=== PATIENT | male | born 1950 | race Caucasian/White ===

== ENCOUNTER 2020-12-23 02:27 | Inpatient (IN) | payer MEDICARE ==
[~2020-12-23] VITALS: Ht 177.8 cm; Wt 86.6 kg
[~2020-12-23 02:27] MED LIST: ACID CONTROL20 MG; B12INJ IM; BUSPAR15 MG; CO Q-10100 MG PO; COZAAR 50 MG TA50 M2 PO; CRESTOR40 MG; FISH OIL 1,001000 M2 PO; GLUCOPHAGE500 MG; HYDROXYZINE HCL25 M2; NORVASC10 MG; PREDNISONE50 MG PO; PRILOSEC40 MG; VITAMINS; XYZAL5 MG; ZOFRAN ODT4 MG SUBLING; ZOLOFT100 MG
[2020-12-23 02:37] VITALS: BP 156/96
[2020-12-23] MEDS ORDERED: AVAPRO 150 MG150 M1 PO (02:46)
[2020-12-23] MEDS ORDERED: PLAQUENIL200 MG PO (02:47)
[2020-12-23] MEDS ORDERED: XYZAL5 MG PO (02:48)
[2020-12-23] MEDS ORDERED: AVAPRO300 MG PO (03:00)
[2020-12-23 03:17] LABS: ABSOLUTE LYMPHOCYTES 1.5 thou/uL (0.8-5.3); ABSOLUTE MONOCYTES 0.8 thou/uL (0.0-1.2); ABSOLUTE NEUTROPHILS 3.5 thou/uL (1.6-8.1); BASOPHILS 0.3 %; EOSINOPHILS 0.7 %; HEMATOCRIT 36.5 % (42.0-52.0); HEMOGLOBIN 12.9 gm/dL (14.0-18.0); LYMPHOCYTES 25.1 %; MCH 31.7 pg (26.0-34.0); MCHC 35.2 g/dL (28.0-37.0); MCV 89.8 fL (80.0-100.0); MONOCYTES 13.5 %; MPV 6.6 fl. (7.2-11.1); NUCLEATED RBCS 0 /100WBC; PLATELET COUNT* 186 thou/uL (150-400); POLYS 60.4 %; RBC 4.06 mil/uL (4.50-6.00); RDW-CV 12.2 % (10.5-14.5); WBC 5.8 thou/uL (4.0-11.0)
[2020-12-23 03:24] LABS: CALCIUM 8.9 mg/dL (8.5-10.1); CREATININE 1.1 mg/dL (0.6-1.3); POTASSIUM 4.6 mmol/L (3.5-5.1)
--- NOTE | 2020-12-23 10:59 | EKG ---
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 : 1950 Requested By: Diana Mccarthy Order Number: [id number] Mireille MD: Vivek Judge Measurements Intervals [place] Rate: 77 P: 68 NE: 218 QRS: 38 QRSD: 94 T: 62 QT: 356 QTc: 403 Interpretive Statements Sinus rhythm Borderline prolonged NE interval Probable left atrial enlargement RSR' in V1 or V2, right VCD Compared to ECG 10/15/2014 01:10 RSR' in V1 or V2 now present Electronically Signed On 12-23-2020 10:59:43 CDT by Vivek Judge [email or web address] <ELECTRONICALLY SIGNED> By: Vivek Judge MD, [facility] 12/23/20 1059 0236 0236 Vivek Judge MD, [facility] /EPI
[2020-12-23 12:22] LABS: CALCIUM 8.6 mg/dL (8.5-10.1); CREATININE 0.9 mg/dL (0.6-1.3); POTASSIUM 4.3 mmol/L (3.5-5.1)
[2020-12-23 16:46] VITALS: BP 133/72
[2020-12-23 17:00] VITALS: BP 156/82
--- NOTE | 2020-12-23 18:42 | NUR ---
PT ALERT AND ORIENTED X 4. PT UP AD TIN AND STEADY. PT DENIES N,V, AND ABDOMINAL PAIN AT THIS TIME. REMAINS ON RA. PT ADMITTED WITH SBO. CALL LIGHT WITHIN REACH. DR. BIANCHI CALLED FOR SURGERY. UPDATE GIVEN. STATES SHE WILL TRY TO SEE PT TONIHGT. IVF REMAIN INFUSING. WILL CONTINUE TO MONITOR.
[2020-12-23 20:30] VITALS: BP 132/76
--- NOTE | 2020-12-24 07:33 | NUR ---
PATIENT SLEPT VERY LITTLE THIS SHIFT. IV FLUIDS CONTINUE TO INFUSE ORDERED. PATIENT HAS BEEN NPO ORDERED. PATIENT HAS DENIED THE NEED FOR PAIN MEDICINE. PATIENT STATES HE DID HAVE A SMALL BOWEL MOVEMENT LAST NIGHT. WILL CONTINUE TO MONITOR.
[2020-12-24 07:53] VITALS: BP 114/59
[2020-12-24 09:25] LABS: ABSOLUTE LYMPHOCYTES 1.7 thou/uL (0.8-5.3); ABSOLUTE MONOCYTES 0.7 thou/uL (0.0-1.2); ABSOLUTE NEUTROPHILS 2.9 thou/uL (1.6-8.1); BASOPHILS 0.5 %; EOSINOPHILS 0.6 %; HEMATOCRIT 38.1 % (42.0-52.0); HEMOGLOBIN 13.3 gm/dL (14.0-18.0); LYMPHOCYTES 31.5 %; MCH 31.6 pg (26.0-34.0); MCHC 34.9 g/dL (28.0-37.0); MCV 90.5 fL (80.0-100.0); MONOCYTES 13.7 %; MPV 6.9 fl. (7.2-11.1); NUCLEATED RBCS 0 /100WBC; PLATELET COUNT* 197 thou/uL (150-400); POLYS 53.7 %; RBC 4.21 mil/uL (4.50-6.00); RDW-CV 12.3 % (10.5-14.5); WBC 5.3 thou/uL (4.0-11.0)
[2020-12-24 09:40] LABS: CALCIUM 8.9 mg/dL (8.5-10.1); CREATININE 0.9 mg/dL (0.6-1.3); MAGNESIUM 2.1 mg/dL (1.8-2.4); POTASSIUM 3.9 mmol/L (3.5-5.1)
[2020-12-24 16:07] VITALS: BP 130/72
--- NOTE | 2020-12-24 18:39 | NUR ---
PATIENT HAS REMAINED A&OX4, PLEASANT AND COOPERATIVE WITH CARES THIS SHIFT. MEDICATIONS AND FLUIDS ADMINISTERED ORDERED. PATIENT REPORTS HAVING HAD MODERATE BM X2 THIS EVENING AND IS "FEELING BETTER". PATIENT HAS BEEN UP FREQUENTLY WALKING THE DERAS ON THE UNIT AND IS TOLERATING CLEAR LIQUID DIET. PATIENT HAS DENIED ANY PAIN/N/V THIS SHIFT. CALL LIGHT WITHIN REACH.
[2020-12-24 21:30] VITALS: BP 124/71
--- NOTE | 2020-12-25 07:37 | NUR ---
PATIENT SLEPT PART OF THE NIGHT. IV FLUIDS CONTINUE TO INFUSE ORDERED. PATIENT WAS GIVEN ANOTHER DOSE OF MILK OF MAG PER REQUEST. PATIENT HAD ANOTHER COUPLE STOOLS THIS SHIFT. PATIENT SHOULD DISCHARGE HOME TODAY. WILL CONTINUE TO MONITOR.
[2020-12-25] MEDS ORDERED: CVS SENNA PLUS1 EACH PO (08:06)
[2020-12-25 08:10] VITALS: BP 121/67
[2020-12-25] MEDS ORDERED: METOCLOPRAM5 MG/1 ML IVPUSH (08:10)
[2020-12-25 08:29] LABS: HEMATOCRIT 34.1 % (42.0-52.0); HEMOGLOBIN 11.8 gm/dL (14.0-18.0); MCH 31.1 pg (26.0-34.0); MCHC 34.7 g/dL (28.0-37.0); MCV 89.5 fL (80.0-100.0); MPV 7.2 fl. (7.2-11.1); RBC 3.81 mil/uL (4.50-6.00); RDW-CV 12.2 % (10.5-14.5); WBC 4.1 thou/uL (4.0-11.0)
[2020-12-25 08:54] LABS: CALCIUM 8.5 mg/dL (8.5-10.1); CREATININE 0.8 mg/dL (0.6-1.3); POTASSIUM 3.7 mmol/L (3.5-5.1)
[2020-12-25 13:26] VITALS: BP 121/67
--- NOTE | 2020-12-25 13:45 | NUR ---
PT A&OX4 VSS. PT UP AD TIN, GAIT STEADY. DENIES N/V. DIET ADVANCED AND TOLERATED. PT REPORTS BM TODAY. ACCUCHECKS, SLIDING SCALE INSULIN ADMINISTERED WHEN INDICATED. IV TO LFA PATENT, DRESSING C/D/I. KUB RESULTS REPORTED TO DR RAPHAEL AND PT CLEARED TO DC HOME. PT IV DC'D PRIOR TO LEAVING UNIT. PT DRESSED INDEPENDENTLY. PT STATES UNDERSTANDING OF DC AND FOLLOW UP INSTRUCITONS. PT LEFT UNIT IN WHEELCHAIR TRANSPORTED BY NURSING STAFF.
--- NOTE | 2020-12-27 15:30 | CON ---
[place] [address] CONSULTATION Name: JIMMY BEEBE Vito Room: [address]#: [id number] Admission: 12/23/20 Attend Phys: Maldonado Bowden MD Discharge: 12/25/20 Date of : 54 Report #: [id number] THIS REPORT FOR: cc: Vivek Liu MD, John MD Namin,Cassia Cross MD ~ DOC #: [id number] cc: Maldonado Bowden MD, MD Cassia Ann MD DATE OF CONSULTATION: 12/24/2020 REASON FOR CONSULT: Partial small bowel obstruction. HISTORY OF PRESENT ILLNESS: This is a 70-year-old male with history of small-bowel obstruction in the past. The patient presented with abdominal pain and distention. He reports that he usually has a lot of gas and has to belch for a couple of hours before going to bed every night. In admission, the patient had a CT of abdomen and pelvis which revealed dilated stomach with dilation of the small bowel and significant amount of stool in the colon. The patient was reporting some nausea and labs found him to be hyponatremic. PAST MEDICAL HISTORY: Significant for history of diabetes, hypertension, dyslipidemia, gastroesophageal reflux disease, diverticulosis, degenerative joint disease, seasonal allergies. ALLERGIES: SIGNIFICANT TO CEPHALEXIN, HYDROCODONE, LATEX, LISINOPRIL, PENICILLIN, AUGMENTIN, OSELTAMIVIR, TRAMADOL AND CEPHALOSPORINS. MEDICATIONS: Please refer to MAR. SOCIAL HISTORY: The patient lives at home. Denies tobacco or alcohol use. FAMILY HISTORY: Noncontributory. PHYSICAL EXAMINATION: VITAL SIGNS: Normal vitals. LUNGS: Clear. CARDIOVASCULAR: Regular. ABDOMEN: Soft, nontender, nondistended. Bowel sounds are positive. ASSESSMENT AND PLAN: The patient with history of small-bowel obstruction in the past, who presents with nausea and abdominal pain [place] [address] CONSULTATION Name: JIMMY BEEBE Room: [address]#: [id number] Admission: 12/23/20 Attend Phys: Maldonado Bowden MD Discharge: 12/25/20 Date of : 54 Report #: [id number] constipation and dilatation of the small bowel and gastric distention. His gastric distention and burping issues may be due to gastroparesis as he has had diabetes since 2009. He also has constipation, which does not help this. In addition, he may have a motility issue of his small bowel as well. I will go ahead and put him on Reglan 10 mg IV q. 8 hours with a goal to switch him to 10 mg p.o. b.i.d. when he goes home. He should also take MiraLax regularly. I will order a KUB tomorrow. We will start him with clear liquids today and advance diet, hopefully to regular tomorrow. Cassia Fenton MD FMN/RAN <ELECTRONICALLY SIGNED> By: Cassia Fenton MD 12/27/20 1530 1023 1103Cassia Fenton MD /nt
== END 2020-12-25 13:45 | disposition home or self-care (01) | DRG 389 ==
LOC: M.ERS 02:27 → M.TBA-ER 08:23 → M.ORTHSURG 16:58
PROVIDERS: Emergency Medicine; Family Medicine; Internal Medicine; Surgery; ADMIT Internal Medicine; ATTEND Internal Medicine
DX: K56.600 Partial intestinal obstruction, unspecified as to cause (principal); E87.1 Hypo-osmolality and hyponatremia; E11.9 Type 2 diabetes mellitus without complications; I10 Essential (primary) hypertension; E78.5 Hyperlipidemia, unspecified; K21.9 Gastro-esophageal reflux disease without esophagitis; M19.90 Unspecified osteoarthritis, unspecified site; K57.90 Diverticulosis of intestine, part unspecified, without perforation or abscess without bleeding; Z20.822 Contact with and (suspected) exposure to COVID-19; Z79.84 Long term (current) use of oral hypoglycemic drugs; Z79.899 Other long term (current) drug therapy; Z88.5 Allergy status to narcotic agent; Z88.0 Allergy status to penicillin; Z88.8 Allergy status to other drugs, medicaments and biological substances; Z88.1 Allergy status to other antibiotic agents; Z91.040 Latex allergy status

== ENCOUNTER 2020-12-26 05:14 | Emergency (ER) | payer MEDICARE ==
[~2020-12-26] VITALS: Ht 177.8 cm; Wt 87.5 kg
[~2020-12-26 05:14] MED LIST changes: +AVAPRO 150 MG150 M1 PO; +AVAPRO300 MG PO; +CVS SENNA PLUS1 EACH PO; +METOCLOPRAM5 MG/1 ML IVPUSH; +PLAQUENIL200 MG PO; +XYZAL5 MG PO
[2020-12-26 06:18] VITALS: BP 177/87
== END 2020-12-26 06:18 | disposition home or self-care (01) ==
LOC: M.ERS 05:14
DX: R45.1 Restlessness and agitation (principal); T45.0X5A Adverse effect of antiallergic and antiemetic drugs, initial encounter; E11.9 Type 2 diabetes mellitus without complications; I10 Essential (primary) hypertension; E78.5 Hyperlipidemia, unspecified; K21.9 Gastro-esophageal reflux disease without esophagitis; Z90.89 Acquired absence of other organs; Z88.1 Allergy status to other antibiotic agents; Z88.0 Allergy status to penicillin; Z91.040 Latex allergy status; Z88.5 Allergy status to narcotic agent; Z88.6 Allergy status to analgesic agent; Z88.8 Allergy status to other drugs, medicaments and biological substances; Y92.89 Other specified places as the place of occurrence of the external cause

== ENCOUNTER 2020-12-29 12:12 | Emergency (ER) | payer MEDICARE ==
[~2020-12-29] VITALS: Ht 177.8 cm; Wt 87.5 kg
[2020-12-29 13:34] LABS: ABSOLUTE LYMPHOCYTES 0.9 thou/uL (0.8-5.3); ABSOLUTE MONOCYTES 0.5 thou/uL (0.0-1.2); ABSOLUTE NEUTROPHILS 3.6 thou/uL (1.6-8.1); BASOPHILS 0.4 %; EOSINOPHILS 0.2 %; HEMATOCRIT 38.6 % (42.0-52.0); HEMOGLOBIN 13.3 gm/dL (14.0-18.0); LYMPHOCYTES 17.9 %; MCH 31.3 pg (26.0-34.0); MCHC 34.5 g/dL (28.0-37.0); MCV 90.7 fL (80.0-100.0); MONOCYTES 10.7 %; MPV 6.7 fl. (7.2-11.1); NUCLEATED RBCS 0 /100WBC; PLATELET COUNT* 217 thou/uL (150-400); POLYS 70.8 %; RBC 4.25 mil/uL (4.50-6.00); RDW-CV 12.2 % (10.5-14.5)
[2020-12-29 13:44] LABS: CALCIUM 9.1 mg/dL (8.5-10.1); CREATININE 0.9 mg/dL (0.6-1.3)
[2020-12-29 13:49] LABS: ALBUMIN 4.2 g/dL (3.4-5.0); TOTAL BILIRUBIN 0.7 mg/dL (<0.1-1.0); TOTAL PROTEIN 7.3 g/dL (6.4-8.2)
--- NOTE | 2020-12-29 14:18 | EKG ---
[place] [address] ELECTROCARDIOGRAM REPORT Name: JIMMY BEEBE Room: [facility]#: [id number] Admission: 12/29/20 Attend Phys: Discharge: Date of : 54 Date of Service: 12/29/20 1309 Report #: [id number] THIS REPORT FOR: //name// 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1950 Requested By: Lyla Fowler Order Number: [id number] MD: Braden Horvath Measurements Intervals [place] Rate: 81 P: 68 ND: 212 QRS: 27 QRSD: 96 T: 64 QT: 365 QTc: 424 Interpretive Statements Sinus rhythm Borderline prolonged ND interval Probable left atrial enlargement RSR' in V1 or V2, right VCD or RVH Compared to ECG 12/23/2020 02:36:37 no change Electronically Signed On 12-29-2020 14:18:10 CDT by Braden Horvath [email or web address] <ELECTRONICALLY SIGNED> By: Braden Horvath MD, [facility] 12/29/20 1418 1309 1309 Braden Horvath MD, [facility] /EPI
[2020-12-29 15:45] VITALS: BP 121/72
== END 2020-12-29 15:45 | disposition home or self-care (01) ==
LOC: M.ERS 12:12
PROVIDERS: Physician Assistant
DX: R25.2 Cramp and spasm (principal); E87.1 Hypo-osmolality and hyponatremia; E11.9 Type 2 diabetes mellitus without complications; I10 Essential (primary) hypertension; K21.9 Gastro-esophageal reflux disease without esophagitis; Z88.6 Allergy status to analgesic agent; Z91.040 Latex allergy status; Z88.0 Allergy status to penicillin; Z79.899 Other long term (current) drug therapy

== ENCOUNTER 2021-01-01 11:08 | Emergency (ER) | payer MEDICARE ==
[~2021-01-01] VITALS: Ht 177.8 cm; Wt 84.4 kg
[2021-01-01] MEDS ORDERED: MIRALAX119 GM PO (11:17)
[2021-01-01 11:36] LABS: ABSOLUTE MONOCYTES 0.5 thou/uL (0.0-1.2); ABSOLUTE NEUTROPHILS 3.2 thou/uL (1.6-8.1); BASOPHILS 0.4 %; EOSINOPHILS 0.4 %; HEMATOCRIT 36.5 % (42.0-52.0); HEMOGLOBIN 12.7 gm/dL (14.0-18.0); LYMPHOCYTES 20.5 %; MCH 31.6 pg (26.0-34.0); MCHC 34.8 g/dL (28.0-37.0); MCV 90.6 fL (80.0-100.0); MONOCYTES 11.4 %; MPV 6.5 fl. (7.2-11.1); NUCLEATED RBCS 0 /100WBC; PLATELET COUNT* 208 thou/uL (150-400); POLYS 67.3 %; RBC 4.04 mil/uL (4.50-6.00); RDW-CV 12.2 % (10.5-14.5); WBC 4.7 thou/uL (4.0-11.0)
[2021-01-01 11:44] LABS: CALCIUM 8.9 mg/dL (8.5-10.1); CREATININE 0.9 mg/dL (0.6-1.3); POTASSIUM 3.8 mmol/L (3.5-5.1)
[2021-01-01 11:49] LABS: TOTAL BILIRUBIN 0.7 mg/dL (<0.1-1.0); TOTAL PROTEIN 6.9 g/dL (6.4-8.2)
[2021-01-01] MEDS ORDERED: ONDANSETRON ODT4 MG PO (11:59)
[2021-01-01 13:27] VITALS: BP 132/67
== END 2021-01-01 13:27 | disposition home or self-care (01) ==
LOC: M.ERS 11:08
PROVIDERS: Physician Assistant
DX: R11.2 Nausea with vomiting, unspecified (principal); E11.9 Type 2 diabetes mellitus without complications; I10 Essential (primary) hypertension; E78.5 Hyperlipidemia, unspecified; K21.9 Gastro-esophageal reflux disease without esophagitis; Z90.89 Acquired absence of other organs; Z88.6 Allergy status to analgesic agent; Z88.0 Allergy status to penicillin; Z91.040 Latex allergy status; Z88.5 Allergy status to narcotic agent; Z88.8 Allergy status to other drugs, medicaments and biological substances

== ENCOUNTER 2021-01-11 18:18 | Emergency (ER) | payer MEDICARE ==
[~2021-01-11] VITALS: Ht 177.8 cm; Wt 83.9 kg
[~2021-01-11 18:18] MED LIST changes: +MIRALAX119 GM PO; +ONDANSETRON ODT4 MG PO
[2021-01-11 19:51] LABS: ABSOLUTE LYMPHOCYTES 0.8 thou/uL (0.8-5.3); ABSOLUTE MONOCYTES 0.6 thou/uL (0.0-1.2); ABSOLUTE NEUTROPHILS 4.3 thou/uL (1.6-8.1); BASOPHILS 0.4 %; EOSINOPHILS 0.3 %; HEMOGLOBIN 13.2 gm/dL (14.0-18.0); LYMPHOCYTES 13.9 %; MCH 31.6 pg (26.0-34.0); MCHC 33.9 g/dL (28.0-37.0); MCV 93.3 fL (80.0-100.0); MPV 7.1 fl. (7.2-11.1); NUCLEATED RBCS 0 /100WBC; PLATELET COUNT* 216 thou/uL (150-400); POLYS 74.4 %; RBC 4.17 mil/uL (4.50-6.00); WBC 5.7 thou/uL (4.0-11.0)
[2021-01-11 19:59] LABS: CALCIUM 8.7 mg/dL (8.5-10.1); POTASSIUM 4.8 mmol/L (3.5-5.1)
[2021-01-11 20:08] LABS: ALBUMIN 3.8 g/dL (3.4-5.0); TOTAL BILIRUBIN 0.4 mg/dL (<0.1-1.0)
[2021-01-11 21:11] VITALS: BP 143/77
--- NOTE | 2021-01-12 11:44 | EKG ---
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
== END 2021-01-11 21:12 | disposition home or self-care (01) ==
LOC: M.ERS 18:18
PROVIDERS: Personal Emergency Response Attendant
DX: R25.3 Fasciculation (principal); R19.7 Diarrhea, unspecified; E11.9 Type 2 diabetes mellitus without complications; I10 Essential (primary) hypertension; E78.5 Hyperlipidemia, unspecified; K21.9 Gastro-esophageal reflux disease without esophagitis; Z88.1 Allergy status to other antibiotic agents; Z91.040 Latex allergy status; Z88.0 Allergy status to penicillin; Z88.8 Allergy status to other drugs, medicaments and biological substances; Z88.6 Allergy status to analgesic agent; Z90.89 Acquired absence of other organs

== ENCOUNTER → 2021-02-01 | Day surgery (SDC) | payer MEDICARE ==
[~2021-02-01] MED LIST changes: -ACID CONTROL20 MG; +ACID CONTROLLER20 MG PO; +APAP W/CODEINE1 TA2 PO; -CRESTOR40 MG; +CRESTOR40 MG PO; -GLUCOPHAGE500 MG; +METFORMIN HCL500 MG PO; +PROBIOTIC1 EAC7 PO; +PROTONIX40 M4 PO; +SUPER THERAVIT1 EACH PO; +VITAMIN D31250 MC1 PO
--- NOTE | ~2021-02-01 | OP ---
[facility] [address] [place] [address] OPERATIVE REPORT Name: JIMMY BEEBE Room: [facility].R.#: [id number] Admission: 02/01/21 Attend Phys: Roel Wilkinson Discharge: Date of : 54 Report #: [id number] THIS REPORT FOR: cc: Vivek Liu MD, John MD Patterson,Roel Lundberg MD ~ DATE OF SURGERY: 02/01/2021 PREOPERATIVE DIAGNOSIS: Symptomatic cholelithiasis. POSTOPERATIVE DIAGNOSIS: Symptomatic cholelithiasis. OPERATION: Laparoscopic cholecystectomy. SURGEON: Roel Wilkinson MD ANESTHESIA: General. ESTIMATED BLOOD LOSS: Minimal. SPECIMENS: Gallbladder. DESCRIPTION OF PROCEDURE: After informed consent was obtained, the patient was brought to the operating room and placed supine. SCDs were placed and working, preoperative antibiotics were administered, general anesthesia was induced. The abdomen was prepped and draped in the usual sterile fashion. A 10 mm incision was made below the umbilicus. Fascia was incised and a trocar was placed. Pneumoperitoneum was established. Three right upper quadrant 5 mm ports were placed. Gallbladder was grasped at the fundus and retracted cephalad. Infundibulum was grasped and retracted laterally. I dissected out the cystic duct and cystic artery. Cystic duct and artery were clipped and ligated, a PDS Endoloop on the remaining duct and a clip on the remaining artery. Gallbladder was then taken off the liver bed with electrocautery. It was placed into an Endopouch and removed. The fascia was closed with a [id number] 0 Vicryl. Skin was closed with 4-0 Monocryl. Incisions were dressed with Steri-Strips. COMPLICATIONS: None. DISPOSITION: The patient was taken to recovery in satisfactory condition. By: 0813 0822Roel Wilkinson MD /nt
--- NOTE | 2021-02-03 11:07 | PATH ---
[address] [address] PATHOLOGY RPT PROCEDURE Name: JIMMY BEEBE Room: [facility].#: [id number] Admission: 02/01/21 Date of : 54 Discharge: Report #: [id number] Path Case #: [id number] [facility] Accession Number: [id number] . 01 Material submitted: . gallbladder - GALLBLADDER . 02 Diagnosis: Gallbladder: - Chronic cholecystitis and cholelithiasis. (ENEDELIA:[facility]; 02/02/2021) [facility] 02/02/2021 1529 [facility] . 02 Electronically signed: . Puma Valencia MD, Pathologist NPI- [id number] . 01 Gross description: . Fixative: Formalin Labeled: Gallbladder Specimen received: An intact gallbladder Dimensions: 8.0 x 4.5 x 1.5 cm Serosa: Novak-yellow, fatty and smooth Lymph node: Not identified Mucosa: Novak and focally effaced Average wall thickness: 0.1 Calculi: Multiple black, irregular friable stone measuring 1.0 x 0.8 x 0.2 cm in aggregate Abnormalities: None identified A1- Transplant Immunologist body, fundus, and the cystic duct margin. (MRF; 02/01/2021) MFE/MFE 02/01/2021 1634 Local . 02 Pathologist provided ICD-10: K80.10 . 02 CPT . 157053 Specimen Comment: A courtesy copy of this report has been sent to [phone] Specimen Comment: Report sent to Performed at: [address], [place], [place] [id number] MD James Mckeon MD Phone: [phone] Performed at: [address] [address] [address], [place], [place] [id number] MD Puma Valencia MD Phone: [phone]
== END | disposition home or self-care (01) ==
LOC: M.SUR 06:01
PROVIDERS: ATTEND Surgery
DX: K80.10 Calculus of gallbladder with chronic cholecystitis without obstruction (principal); R10.11 Right upper quadrant pain; I10 Essential (primary) hypertension; E11.9 Type 2 diabetes mellitus without complications; E78.5 Hyperlipidemia, unspecified; K21.9 Gastro-esophageal reflux disease without esophagitis; M19.90 Unspecified osteoarthritis, unspecified site; Z98.890 Other specified postprocedural states; Z79.899 Other long term (current) drug therapy; Z20.822 Contact with and (suspected) exposure to COVID-19; Z87.891 Personal history of nicotine dependence; Z98.52 Vasectomy status; Z91.040 Latex allergy status; Z88.0 Allergy status to penicillin; Z88.2 Allergy status to sulfonamides; Z88.8 Allergy status to other drugs, medicaments and biological substances